=== PATIENT | female | born 1990 | race Caucasian/White ===

== ENCOUNTER 2016-04-21 01:41 | Emergency (ER) | payer SELFPAY ==
[2016-04-21] MEDS ORDERED: AMOXicillin 250 MG CAP ONE (02:30)
[2016-04-21] MEDS ORDERED: methylPREDNISolone Sod Succ/PF 125 MG/2 ML VIAL ONE (02:31)
--- NOTE | 2016-04-21 03:08 | PICIS ---
[facility] EMERGENCY RECORD TRIAGE (TueApr 21, 2016 01:53 MVIL) TRIAGE NOTES: SOB X 2 WEEKS. (TueApr 21, 2016 01:53 MVIL) PATIENT: NAME: Pura Mayorga, AGE: 25, GENDER: female, : Tue1990, TIME OF GREET: TueApr 21, 2016 01:42, PREFERRED LANGUAGE: Kyrgyz, ETHNICITY: Not or , FALL RISK: NO, ECODE BILLING MAP: [facility], SSN: [id number], Zip Code: [address], KG WEIGHT: 113.40, HEIGHT/LENGTH: 170.18cm, BMI: 39.15, , , PERSON ID: [id number], PAYMENT: [employer] Self Pay, PCP: [facility]. (TueApr 21, 2016 01:53 MVIL) PHONE: . (02:02) COMPLAINT: SOB. (TueApr 21, 2016 01:53 MVIL) ADMISSION: URGENCY: 3 Urgent, ADMISSION SOURCE: Home, TRANSPORT: CAR, BED: ER -01. (TueApr 21, 2016 01:53 MVIL) ASSESSMENT: Assessment: C/O SOB X 2 DAYS, Symptoms began 04/19/2016 02:03, Symptoms began 2 days ago. (02:05 MVIL) PAIN: No complaint of pain. (02:05 MVIL) SIRS SCORING: Heart Rate 55-109 (0). (02:05 MVIL) TRIAGE SCREENING: Patient denies suicidal ideation, Patient denies presence of domestic violence. (02:09 MVIL) TREATMENTS IN PROGRESS: Patient on oxygen, Patient on cardiac rehabilitation specialist, Rhythm: NSR. (02:10 MVIL) PROVIDERS: TRIAGE NURSE: Jo Solorzano RN. (TueApr 21, 2016 01:53 MVIL) VITAL SIGNS: BP 126/72, Pulse 95, Resp 14, Temp 97.8, (Oral), Pain 2, Time 04/21/2016 01:50. (01:50 MVIL) PREVIOUS VISIT ALLERGIES: erythromycin (bulk). (TueApr 21, 2016 01:53 MVIL) erythromycin (bulk). (02:05 MVIL) KNOWN ALLERGIES erythromycin (bulk): Reaction: Rash, Severity: Mild, Source: Patient CURRENT MEDICATIONS No recorded medications VITAL SIGNS (01:50 MVIL) VITAL SIGNS: BP: 126/72, Pulse: 95, Resp: 14, Temp: 97.8 (Oral), Pain: 2, Time: 04/21/2016 01:50. NURSING PROCEDURE: POP SINGER (01:56 SDIS) POP SINGER: Patient placed on cardiac rehabilitation specialist, Patient placed on non-invasive blood pressure monitor, Patient placed on continuous pulse oximetry. NURSING PROCEDURE: DISCHARGE NOTE (02:57 MVIL) DISCHARGE: Patient discharged to home, ambulating without assistance, driving self, unaccompanied, Summary of Care printed/ &a-1R&a+25V*p+0X*k6075G*c202B*c15G*c2P*p-0X&a-25V&a+1R Name: Pura Mayorga : 1990 F25 MedRec: [id number] AcctNum: [id number] Prepared: TueApr 21, 2016 03:07 by Interface Page 1 of 9 pMD [facility] EMERGENCY RECORD provided, Patient requested and was provided an electronic copy of Discharge Instructions, Transition record given to patient, Discharge instructions given to patient, Prescriptions given and instructions on side effects given, Name of prescription(s) given: PREDNISONE, PROMETHAZINE, AND AMOXICILLIN, Medication reconciliation form given, Above person(s) verbalized understanding of discharge instructions and follow-up care. BELONGINGS: Belongings and valuables with patient at time of discharge include:. NURSING PROCEDURE: EKG CHART (01:53 SDIS) PATIENT IDENTIFIER: Patient actively involved in identification process, Patient's identity verified by patient stating name, Patient's identity verified by patient stating date, Patient's identity verified by hospital ID bracelet. EKG: EKG indicated for complaint of chest pain, 12 lead EKG performed on the left chest, done by MARVIN CHAVEZ, first EKG, Notes: ACTUAL TIME 0147. FOLLOW-UP: After procedure, EKG for interpretation given to Dr. LUI. NURSING PROCEDURE: IV (02:41 MVIL) PATIENT IDENITIFIER: Patient actively involved in identification process, Patient's identity verified by patient stating name, Patient's identity verified by hospital ID bracelet. IV SITE 1: IV therapy indicated for hydration, IV therapy indicated for medication administration, IV established, to the right hand, using a 20 gauge catheter, in one attempt, Saline lock established, Flushed with normal saline (mls): 10MLS, Labs drawn at time of placement, labeled in the presence of the patient and sent to lab. FOLLOW-UP SITE 1: After procedure, 2x3 ensure dressing applied, After procedure, IV line connections checked and properly labeled, After procedure, no drainage at IV site, After procedure, no swelling at IV site, After procedure, no redness at IV site. SAFETY: Side rails up, Cart/Stretcher in lowest position, Family at bedside, Call light within reach, Hospital ID band on. ORDER DETAILS Order Name: ERRT * Young Jerome Fernandez Initial Trmt, Status: Active, Time: 01:56 04/21/2016, User: GAIL, - Ordered for: DO Lui Joseph, - Entered by: DO Lui Joseph - TueApr 21, 2016 01:56, - Quantity: 1, Order Name: Influenza A&B Ag Screen, Status: Active, Time: 01:56 04/21/2016, User: GAIL, - Ordered for: DO Lui Joseph, - Entered by: DO Lui Joseph - TueApr 21, 2016 01:56, - Quantity: 1, &a-1R&a+25V*p+0X*r2136L*c202B*c15G*c2P*p-0X&a-25V&a+1R Name: Pura Mayorga : 1990 F25 MedRec: [id number] AcctNum: [id number] Prepared: TueApr 21, 2016 03:07 by Interface Page 2 of 9 D [facility] EMERGENCY RECORD Order Name: XR Chest Pa & Lat STANDARD, Status: Active, Time: 01:56 04/21/2016, User: GAIL, - Ordered for: DO Lui Joseph, - Entered by: DO Lui Joseph - TueApr 21, 2016 01:56, - Quantity: 1. MEDICATION ADMINISTRATION SUMMARY Drug Name: Solu-MEDROL injection, Dose Ordered: 125 mg, Route: IV Push, Status: Given, Time: 02:42 04/21/2016, Drug Name: Amoxil, Dose Ordered: 1000 mg, Route: Oral, Status: Given, Time: 02:42 04/21/2016, Drug Name: DuoNeb, Dose Ordered: 3 mL, Route: Nebulize, Status: Given, Time: 02:01 04/21/2016, Detailed record available in Medication Service section. MEDICATION SERVICE Amoxil: Order: Amoxil (amoxicillin trihydrate) - Dose: 1000 mg : Oral Schedule: Now Ordered by: Hi Lui DO Entered by: Hi Lui DO TueApr 21, 2016 02:28 Documented as given by: Jo Solorzano RN TueApr 21, 2016 02:42 Patient, Medication, Dose, Route and Time verified prior to administration. Amount given: 1000MG, Correct patient, time, route, dose and medication confirmed prior to administration, Patient advised of actions and side-effects prior to administration, Allergies confirmed and medications reviewed prior to administration, Patient in position of comfort, Side rails up, Cart in lowest position. DuoNeb: Order: DuoNeb (ipratropium bromide/albuterol sulfate) - Dose: 3 mL : Nebulize Schedule: Now Ordered by: Hi Lui DO Entered by: Hi Lui DO TueApr 21, 2016 01:57 Documented as given by: Maria G Angel RN TueApr 21, 2016 02:01 Patient, Medication, Dose, Route and Time verified prior to administration. With oxygen, Correct patient, time, route, dose and medication confirmed prior to administration, Patient advised of actions and side-effects prior to administration, Allergies confirmed and medications reviewed prior to administration. Solu-MEDROL injection: Order: Solu-MEDROL injection (methylprednisolone sod succ) - Dose: 125 mg : IV Push Ordered by: Hi Lui DO Entered by: Hi Lui DO TueApr 21, 2016 02:28 Documented as given by: Jo Solorzano RN TueApr 21, 2016 02:42 Patient, Medication, Dose, Route and Time verified prior to &a-1R&a+25V*p+0X*j1759H*c202B*c15G*c2P*p-0X&a-25V&a+1R Name: Pura Mayorga : 1990 F25 MedRec: [id number] AcctNum: [id number] Prepared: TueApr 21, 2016 03:07 by Interface Page 3 of 9 pMD [facility] EMERGENCY RECORD administration. Amount given: 125MG, IV SITE #1 IVP, initial medication, Catheter placement confirmed via flush prior to administration, IV site without signs or symptoms of infiltration during medication administration, No swelling during administration, No drainage during administration, IV flushed after administration, Correct patient, time, route, dose and medication confirmed prior to administration, Patient advised of actions and side-effects prior to administration, Allergies confirmed and medications reviewed prior to administration, Patient in position of comfort, Side rails up, Cart in lowest position. HPI COUGH (02:20 JPIP) CHIEF COMPLAINT: Patient presents for evaluation of cough, non-productive, Patient presents for evaluation of SOB and pleuretic chest pain. HISTORIAN: History provided by patient. LOCATION: Symptoms are localized, most severe to amres more on the left side of her chest. QUALITY: Symptoms described as tightness. SEVERITY: Current severity of pain rated as 2/10. TIME COURSE: Gradual onset of symptoms, 2, weeks ago, Symptoms are worsening, today, are constant. ASSOCIATED WITH: Associated with chest pain, Associated with chills, Associated with diaphoresis, Associated with dyspnea on exertion, Associated with fever, Measured maximum temperature 101 to 101.9 degrees, No associated stridor, Associated with upper respiratory infection, No associated wheezing. EXACERBATED BY: Patient's condition exacerbated by deep breaths, Patient's condition exacerbated by exercise, Patient's condition exacerbated by lying flat. RELIEVED BY: Patient's condition relieved by nothing. ROS (02:21 JPIP) CONSTITUTIONAL: Historian reports chills, reports fever, reports malaise. EYES: Historian denies eye pain, denies eye redness, denies eye discharge. ENT: Historian denies dysphagia, reports rhinorrhea, denies sore throat. CARDIOVASCULAR: Historian reports chest pain, pleuritic, Historian reports dyspnea on exertion. RESPIRATORY: Historian reports cough, reports shortness of breath, denies sputum, denies stridor, denies wheezing. GI: Historian denies nausea, denies vomiting. SKIN: Historian denies rash, denies skin changes, denies skin lesions. NEUROLOGIC: Historian denies lethargy, denies mental status &a-1R&a+25V*p+0X*w5397L*c202B*c15G*c2P*p-0X&a-25V&a+1R Name: Pura Mayorga : 1990 F25 MedRec: [id number] AcctNum: [id number] Prepared: TueApr 21, 2016 03:07 by Interface Page 4 of 9 pMD [facility] EMERGENCY RECORD changes, denies paresthesias. NOTES: All systems reviewed, negative except as described above. PAST MEDICAL HISTORY MEDICAL HISTORY: Flu vaccine not up to date, Tetanus immunization up to date, Pneumococcal vaccine not up to date, Past medical history includes gastrointestinal disease, gallstones, SINCE 08/04/14., Flu vaccine not up to date, Tetanus immunization up to date, Pneumococcal vaccine not up to date, Past medical history includes gastrointestinal disease, gallstones. 08-04-14. REVIEWED 04/21/16. (02:05 MVIL) FEMALE SURGICAL HISTORY: Surgical history of tonsillectomy, Surgical history of section, Notes: x2, Surgical history of tubal ligation. ADENOIDS.VERIFIED 08/31/15.REVIEWED 04/21/16. (02:05 MVIL) PSYCHIATRIC HISTORY: Psychiatric history includes, depression, Notes: Pt took herself off meds x2 (ambien and prozac). VERIFIED 08/31/15. (02:05 MVIL) SOCIAL HISTORY: Patient denies alcohol use, Patient denies drug use, Patient currently uses tobacco, smokes cigarettes, daily, Patient smokes 1/2 packs per day, Patient denies alcohol use, Patient denies drug use, Patient currently uses tobacco, smokes cigarettes, daily, Patient has smoked for 15 years, Patient smokes 1/2 packs per day. REVIEWED 04/21/16. (02:05 MVIL) NOTES: Nursing records reviewed, Medication list reviewed. (02:23 JPIP) PHYSICAL EXAM (02:22 JPIP) CONSTITUTIONAL: Vital Signs Reviewed, Patient afebrile, Pulse normal, Blood pressure normal, Respiratory rate normal, Normal pulse oximetry, Patient appears, uncomfortable, Patient alert and oriented to person, place and time, Nursing notes reviewed. HEAD: Head exam included findings of head atraumatic, normocephalic. EYES: Eye exam included findings of eyelids normal to inspection, Conjunctiva normal, Sclera normal, no periorbital ecchymosis, no periorbital edema, no periorbital erythema. ENT: Ear exam normal, external ear normal, tympanic membranes normal, no foreign body, no drainage, no bleeding, Pharynx exam normal, not injected, no swelling, symmetrical, Uvula exam normal, midline, no edema, Mouth exam normal, mucous membranes moist. NECK: Neck exam included findings of normal range of motion, Trachea midline, no cervical adenopathy, no tenderness. RESPIRATORY CHEST: Respiratory exam included findings of no respiratory distress, Breath sounds not clear, No wheezing, Rales present, No rhonchi, Breath sounds not absent, Breath sounds not diminished. CARDIOVASCULAR: Cardiovascular exam included findings of heart rate regular rate and rhythm, Heart sounds normal. UPPER EXTREMITY: Upper extremity exam included findings of &a-1R&a+25V*p+0X*x2349T*c202B*c15G*c2P*p-0X&a-25V&a+1R Name: Pura Mayorga : 1990 F25 MedRec: [id number] AcctNum: [id number] Prepared: TueApr 21, 2016 03:07 by Interface Page 5 of 9 pMD [facility] EMERGENCY RECORD inspection normal, Range of motion normal. NEURO: Mary Alice coma scale 15. SKIN: Skin exam included findings of skin warm, dry, and normal in color. PSYCHIATRIC: Psychiatric exam included findings of patient oriented to person place and time, Normal affect. LAB INTERPRETATION (02:37 JPIP) INTERPRETATION: Influenza negative. EVENTS TRANSFER: Triage to Emergency Emergency Room -. (TueApr 21, 2016 01:53 MVIL) Removed from Emergency Emergency Room -. (02:59 MVIL) RADIOLOGYINTERPRETATION (02:31 JPIP) CHEST: Chest films negative, no infiltrates, no pneumothorax, no hemothorax, no masses, no cardiomegaly, no congestive heart failure, no effusion, no free air. HEAD MVA REACTOR OPERATOR: Preliminary review of x-rays by, ED Physician. EKG INTERPRETATION (01:57 JPIP) 12 LEAD EKG INTERPRETATION: 12 lead EKG interpreted by Emergency Department Physician at time of study, 12 lead EKG shows normal sinus rhythm, Rate (beats per minute): 92, with no ectopics, Interpretation: normal EKG, Conduction normal, ST segments normal, T waves normal, [place] normal, Clinical impression: Normal EKG. O2SAT INTERPRETATION (02:20 JPIP) O2SAT: Continuous pulse oximetry, Oxygen saturation 98%, on room air, Oxygen saturation interpretation: Normal, No intervention required. DOCTOR NOTES RE-EVALUATION: Routine re-evaluation, after administration of bronchodilator nebulizer treatments, The patient's condition has improved. (02:25 JPIP) TEXT: Discussed findings and treatment plan with patient, questions answered. (02:30 JPIP) PROBLEM LIST No recorded problems DIAGNOSIS (02:31 JPIP) FINAL: PRIMARY: Acute bronchitis. DISPOSITION PATIENT: Disposition Type: Discharge, Disposition: *Discharge Home, Condition: Good. (02:31 JPIP) Patient left the department. (02:59 MVIL) &a-1R&a+25V*p+0X*c9517F*c202B*c15G*c2P*p-0X&a-25V&a+1R Name: Pura Mayorga : 1990 F25 MedRec: [id number] AcctNum: [id number] Prepared: TueApr 21, 2016 03:07 by Interface Page 6 of 9 pMD [facility] EMERGENCY RECORD INSTRUCTION (02:29 JPIP) DISCHARGE: BRONCHITIS, ABX TX (ADULT). SPECIAL: Finish all your antibiotics Follow up with Primary Care Physician within 72 hours Return to the Emergency Department for increased symptoms problems or concerns Take acetaminophen or ibuprofen for pain. PRESCRIPTION Amoxil: CAPSULE (HARD, SOFT, ETC.) : 500 mg : ORAL : Quantity: 1 Unit: mg Route: ORAL Schedule: 3 times a day (after meals) Dispense: 30 May substitute. Refills: No Refills . (02:28 JPIP) NOTES: No refills. (02:28 JPIP) predniSONE oral: TABLET : 20 mg : ORAL : Quantity: 1 Unit: tab(s) Route: ORAL Schedule: once a day Dispense: 4 May substitute. Refills: No Refills . (02:28 JPIP) NOTES: Take with food No refills. (02:28 JPIP) promethazine-DM: SYRUP : : ORAL : Quantity: 5 Unit: mL Route: ORAL Schedule: every 8 hours PRN Dispense: 120 ml May substitute. Refills: No Refills . (02:28 JPIP) NOTES: for cough No refills. (02:28 JPIP) Proventil HFA: HFA AEROSOL WITH ADAPTER (GM) : 90 mcg : INHALATION : Quantity: 2 Unit: puff(s) Route: INHALATION Schedule: every 8 hours PRN Dispense: 1 May substitute. Refills: No Refills . (02:30 JPIP) NOTES: Please instruct in proper use. May substitute with an inhaler of less cost or covered by insurance. No refills. (02:30 JPIP) IMAGING *DISCHARGE INSTRUCTIONS RECEIPT: Image captured from scanner. (02:48 MVIL) *SUPPLY CHARGE SHEET: Image captured from scanner. (02:49 MVIL) RESULTS (02:25 JPIP) MICROBIOLOGY: Influenza A&B Ag Screen: [id number] Collection DT: TueApr 21, 2016 02:07, See comment below , @ ER ROOM#: ER-01 Source: Nasal swab Spec Desc: , Influenza A Antigen: NEGATIVE for the , presence of , INFLUENZA A Antigen , Influenza B Antigen: NEGATIVE for the , presence of , INFLUENZA B Antigen , The rapid Flu A&B test can distinguish between &a-1R&a+25V*p+0X*x0359L*c202B*c15G*c2P*p-0X&a-25V&a+1R Name: Pura Mayorga : 1990 F25 MedRec: [id number] AcctNum: [id number] Prepared: TueApr 21, 2016 03:07 by Interface Page 7 of 9 pMD [facility] EMERGENCY RECORD influenza A , Influenza A&B Ag Screen See comment below , and B viruses, but it does not differentiate influenza , Influenza A&B Ag Screen See comment below , subtypes. , Influenza A&B Ag Screen See comment below , Influenza A&B Ag Screen See comment below , Influenza A&B Ag Screen See comment below , Influenza A&B Ag Screen See comment below , characteristics of this device with human specimens infected , Influenza A&B Ag Screen See comment below , with the 2008 H1N1 influenza virus have not been , Influenza A&B Ag Screen See comment below , established. For example: this test cannot distinguish , Influenza A&B Ag Screen See comment below , influenza infections caused by novel H1N1 influenza A , Influenza A&B Ag Screen See comment below , viruses versus seasonal influenza A viruses. , Influenza A&B Ag Screen See comment below , , Influenza A&B Ag Screen See comment below , A negative result does not exclude influenza virus , Influenza A&B Ag Screen See comment below , infection; therefore, if more conclusive testing is desired, , Influenza A&B Ag Screen See comment below , follow up confirmatory testing is warranted., Influenza A&B Ag Screen See comment below . Influenza A&B Ag Screen: [id number] Collection DT: TueApr 21, 2016 02:07, See comment below , @ ER ROOM#: ER-01 Source: Nasal swab Spec Desc: , Influenza A Antigen: NEGATIVE for the , presence of , INFLUENZA A Antigen , Influenza B Antigen: NEGATIVE for the , presence of , INFLUENZA B Antigen , The rapid Flu A&B test can distinguish between influenza A , Influenza A&B Ag Screen See comment below , and B viruses, but it does not differentiate influenza , Influenza A&B Ag Screen See comment below , subtypes. , Influenza A&B Ag Screen See comment below , Influenza A&B Ag Screen See comment below , Influenza A&B Ag Screen See comment below , Influenza A&B Ag Screen See comment below , characteristics of this device with human specimens infected , Influenza A&B Ag Screen See comment below , with the 2008 H1N1 influenza virus have not been , Influenza A&B Ag Screen See comment below , established. For example: this test cannot distinguish , Influenza A&B Ag Screen See comment below , influenza infections &a-1R&a+25V*p+0X*g7412W*c202B*c15G*c2P*p-0X&a-25V&a+1R Name: Pura Mayorga : 1990 5 MedRec: [id number] AcctNum: [id number] Prepared: TueApr 21, 2016 03:07 by Interface Page 8 of 9 pMD [facility] EMERGENCY RECORD caused by novel H1N1 influenza A , Influenza A&B Ag Screen See comment below , viruses versus seasonal influenza A viruses. , Influenza A&B Ag Screen See comment below , , Influenza A&B Ag Screen See comment below , A negative result does not exclude influenza virus , Influenza A&B Ag Screen See comment below , infection; therefore, if more conclusive testing is desired, , Influenza A&B Ag Screen See comment below , follow up confirmatory testing is warranted., Influenza A&B Ag Screen See comment below . [place]: GAIL=DO Lui Joseph MVIL=MARVIN Solorzano Mariella SDIS=MARVIN Angel, Maria G &a-1R&a+25V*p+0X*u5908Y*c202B*c15G*c2P*p-0X&a-25V&a+1R Name: Pura Mayorga : 1990 5 MedRec: [id number] AcctNum: [id number] Prepared: TueApr 21, 2016 03:07 by Interface Page 9 of 9 pMD MTDD
--- NOTE | 2016-04-21 03:09 | ERRECORD ---
[facility] EMERGENCY RECORD HPI COUGH (02:20 JPIP) CHIEF COMPLAINT: Patient presents for evaluation of cough, non-productive, Patient presents for evaluation of SOB and pleuretic chest pain. HISTORIAN: History provided by patient. LOCATION: Symptoms are localized, most severe to mares more on the left side of her chest. QUALITY: Symptoms described as tightness. SEVERITY: Current severity of pain rated as 2/10. TIME COURSE: Gradual onset of symptoms, 2, weeks ago, Symptoms are worsening, today, are constant. ASSOCIATED WITH: Associated with chest pain, Associated with chills, Associated with diaphoresis, Associated with dyspnea on exertion, Associated with fever, Measured maximum temperature 101 to 101.9 degrees, No associated stridor, Associated with upper respiratory infection, No associated wheezing. EXACERBATED BY: Patient's condition exacerbated by deep breaths, Patient's condition exacerbated by exercise, Patient's condition exacerbated by lying flat. RELIEVED BY: Patient's condition relieved by nothing. ROS (02:21 JPIP) CONSTITUTIONAL: Historian reports chills, reports fever, reports malaise. EYES: Historian denies eye pain, denies eye redness, denies eye discharge. ENT: Historian denies dysphagia, reports rhinorrhea, denies sore throat. CARDIOVASCULAR: Historian reports chest pain, pleuritic, Historian reports dyspnea on exertion. RESPIRATORY: Historian reports cough, reports shortness of breath, denies sputum, denies stridor, denies wheezing. GI: Historian denies nausea, denies vomiting. SKIN: Historian denies rash, denies skin changes, denies skin lesions. NEUROLOGIC: Historian denies lethargy, denies mental status changes, denies paresthesias. NOTES: All systems reviewed, negative except as described above. PAST MEDICAL HISTORY MEDICAL HISTORY: Flu vaccine not up to date, Tetanus immunization up to date, Pneumococcal vaccine not up to date, Past medical history includes gastrointestinal disease, gallstones, SINCE 08/04/14., Flu vaccine not up to date, Tetanus immunization up to date, Pneumococcal vaccine not up to date, Past medical history includes gastrointestinal disease, gallstones. 08-04-14. REVIEWED 04/21/16. (02:05 MVIL) FEMALE SURGICAL HISTORY: Surgical history of tonsillectomy, &a-1R&a+25V*p+0X*z2855A*c202B*c15G*c2P*p-0X&a-25V&a+1R Name: Pura Mayorga : 1990 F25 MedRec: [id number] AcctNum: [id number] Prepared: TueApr 21, 2016 03:07 by Interface Page 1 of 4 pMD [facility] EMERGENCY RECORD Surgical history of section, Notes: x2, Surgical history of tubal ligation. ADENOIDS.VERIFIED 08/31/15.REVIEWED 04/21/16. (02:05 MVIL) PSYCHIATRIC HISTORY: Psychiatric history includes, depression, Notes: Pt took herself off meds x2 (ambien and prozac). VERIFIED 08/31/15. (02:05 MVIL) SOCIAL HISTORY: Patient denies alcohol use, Patient denies drug use, Patient currently uses tobacco, smokes cigarettes, daily, Patient smokes 1/2 packs per day, Patient denies alcohol use, Patient denies drug use, Patient currently uses tobacco, smokes cigarettes, daily, Patient has smoked for 15 years, Patient smokes 1/2 packs per day. REVIEWED 04/21/16. (02:05 MVIL) NOTES: Nursing records reviewed, Medication list reviewed. (02:23 JPIP) KNOWN ALLERGIES erythromycin (bulk): Reaction: Rash, Severity: Mild, Source: Patient CURRENT MEDICATIONS No recorded medications VITAL SIGNS (01:50 MVIL) VITAL SIGNS: BP: 126/72, Pulse: 95, Resp: 14, Temp: 97.8 (Oral), Pain: 2, Time: 04/21/2016 01:50. PHYSICAL EXAM (02:22 JPIP) CONSTITUTIONAL: Vital Signs Reviewed, Patient afebrile, Pulse normal, Blood pressure normal, Respiratory rate normal, Normal pulse oximetry, Patient appears, uncomfortable, Patient alert and oriented to person, place and time, Nursing notes reviewed. HEAD: Head exam included findings of head atraumatic, normocephalic. EYES: Eye exam included findings of eyelids normal to inspection, Conjunctiva normal, Sclera normal, no periorbital ecchymosis, no periorbital edema, no periorbital erythema. ENT: Ear exam normal, external ear normal, tympanic membranes normal, no foreign body, no drainage, no bleeding, Pharynx exam normal, not injected, no swelling, symmetrical, Uvula exam normal, midline, no edema, Mouth exam normal, mucous membranes moist. NECK: Neck exam included findings of normal range of motion, Trachea midline, no cervical adenopathy, no tenderness. RESPIRATORY CHEST: Respiratory exam included findings of no respiratory distress, Breath sounds not clear, No wheezing, Rales present, No rhonchi, Breath sounds not absent, Breath sounds not diminished. CARDIOVASCULAR: Cardiovascular exam included findings of heart rate regular rate and rhythm, Heart sounds normal. UPPER EXTREMITY: Upper extremity exam included findings of inspection normal, Range of motion normal. &a-1R&a+25V*p+0X*v0947X*c202B*c15G*c2P*p-0X&a-25V&a+1R Name: Pura Mayorga : 1990 F25 MedRec: [id number] AcctNum: [id number] Prepared: TueApr 21, 2016 03:07 by Interface Page 2 of 4 D [facility] EMERGENCY RECORD NEURO: [place] coma scale 15. SKIN: Skin exam included findings of skin warm, dry, and normal in color. PSYCHIATRIC: Psychiatric exam included findings of patient oriented to person place and time, Normal affect. EKG INTERPRETATION (01:57 JPIP) 12 LEAD EKG INTERPRETATION: 12 lead EKG interpreted by Emergency Department Physician at time of study, 12 lead EKG shows normal sinus rhythm, Rate (beats per minute): 92, with no ectopics, Interpretation: normal EKG, Conduction normal, ST segments normal, T waves normal, Blunt normal, Clinical impression: Normal EKG. RADIOLOGYINTERPRETATION (02:31 JPIP) CHEST: Chest films negative, no infiltrates, no pneumothorax, no hemothorax, no masses, no cardiomegaly, no congestive heart failure, no effusion, no free air. ARCHITECT INTERNSHIP: Preliminary review of x-rays by, ED Physician. MEDICATION ADMINISTRATION SUMMARY Drug Name: Solu-MEDROL injection, Dose Ordered: 125 mg, Route: IV Push, Status: Given, Time: :04/21/2016, Drug Name: Amoxil, Dose Ordered: 1000 mg, Route: Oral, Status: Given, Time: 04/21/2016, Drug Name: DuoNeb, Dose Ordered: 3 mL, Route: Nebulize, Status: Given, Time: 02:01 04/21/2016, Detailed record available in Medication Service section. DOCTOR NOTES RE-EVALUATION: Routine re-evaluation, after administration of bronchodilator nebulizer treatments, The patient's condition has improved. (02:25 JPIP) TEXT: Discussed findings and treatment plan with patient, questions answered. (02:30 JPIP) PROBLEM LIST No recorded problems DIAGNOSIS (02:31 JPIP) FINAL: PRIMARY: Acute bronchitis. PRESCRIPTION Amoxil: CAPSULE (HARD, SOFT, ETC.) : 500 mg : ORAL : Quantity: 1 Unit: mg Route: ORAL Schedule: 3 times a day (after meals) Dispense: 30 May substitute. Refills: No Refills . (02:28 JPIP) NOTES: No refills. (02:28 JPIP) predniSONE oral: TABLET : 20 mg : ORAL : Quantity: 1 Unit: tab(s) Route: ORAL Schedule: once a day Dispense: 4 &a-1R&a+25V*p+0X*v6970Z*c202B*c15G*c2P*p-0X&a-25V&a+1R Name: Pura Mayorga : 1990 F25 MedRec: [id number] AcctNum: [id number] Prepared: TueApr 21, 2016 03:07 by Interface Page 3 of 4 pMD [facility] EMERGENCY RECORD May substitute. Refills: No Refills . (02:28 JPIP) NOTES: Take with food No refills. (02:28 JPIP) promethazine-DM: SYRUP : : ORAL : Quantity: 5 Unit: mL Route: ORAL Schedule: every 8 hours PRN Dispense: 120 ml May substitute. Refills: No Refills . (02:28 JPIP) NOTES: for cough No refills. (02:28 JPIP) Proventil HFA: HFA AEROSOL WITH ADAPTER (GM) : 90 mcg : INHALATION : Quantity: 2 Unit: puff(s) Route: INHALATION Schedule: every 8 hours PRN Dispense: 1 May substitute. Refills: No Refills . (02:30 JPIP) NOTES: Please instruct in proper use. May substitute with an inhaler of less cost or covered by insurance. No refills. (02:30 JPIP) DISPOSITION PATIENT: Disposition Type: Discharge, Disposition: *Discharge Home, Condition: Good. (02:31 JPIP) Patient left the department. (02:59 MVIL) Baldwin: GAIL=DO Lui Joseph MVIL=MARVIN Solorzano, Jo &a-1R&a+25V*p+0X*a5924H*c202B*c15G*c2P*p-0X&a-25V&a+1R Name: Pura Mayorga : 1990 F25 MedRec: [id number] AcctNum: [id number] Prepared: TueApr 21, 2016 03:07 by Interface Page 4 of 4 pMD MTDD
--- NOTE | 2016-04-21 07:08 | RAD ---
CHEST 2 VIEWS: DATE: 04/21/16. FINDINGS: Comparison is made with a 12/29/14 study. The etienne is normal in size and the lungs are clear. No i nfiltrate or effusion was seen today. There is no vascular congestion. The mediastinum was unremar kable in appearance. The trachea is midline. IMPRESSION: No acute thoracic findings. POS: HOME
== END 2016-04-21 02:45 | disposition home or self-care (01) ==
LOC: BURERS 01:41
DX: J20.9 Acute bronchitis, unspecified (principal); F32.9 Major depressive disorder, single episode, unspecified; F17.210 Nicotine dependence, cigarettes, uncomplicated
CPT/HCPCS: 71020; 94640; 96374; J2930; J7620

== ENCOUNTER 2016-10-05 22:28 | Emergency (ER) | payer SELFPAY ==
--- NOTE | 2016-10-06 11:29 | RAD ---
RIGHT FOOT THREE VIEWS: Date: 10-05-16 FINDINGS: No fracture or periosteal reaction was appreciated. The tarsal relations seem normal. A small calcan eal spur was noted. IMPRESSION: No acute finding. POS: HOME
== END 2016-10-05 23:22 | disposition home or self-care (01) ==
LOC: BURERS 22:28
DX: S93.601A Unspecified sprain of right foot, initial encounter (principal); F32.9 Major depressive disorder, single episode, unspecified; F17.210 Nicotine dependence, cigarettes, uncomplicated; X50.1XXA Overexertion from prolonged static or awkward postures, initial encounter

== ENCOUNTER 2016-12-29 17:57 | Emergency (ER) | payer SELFPAY ==
[2016-12-29] MEDS ORDERED: Ibuprofen 800 MG TAB ONE (18:12)
[2016-12-29] MEDS ORDERED: HYDROcodone/Acetaminophen 5/325 mg Tablet ONE (18:12)
[2016-12-29 18:23] LABS: #Basophils 0.1 thou/uL (0.0-0.2); #Eosinphils 0.1 thou/uL (0.0-0.7); #Lymphocytes 3.2 thou/uL (1.20-3.40); #Monocytes 0.5 thou/uL (0.11-0.59); #Neutrophils 5.4 thou/uL (1.40-6.50); %Basophils 0.7 % (0.0-1.0); %Eosinophils 1.3 % (0.0-10.0); %Lymphocytes 34.7 % (21.0-51.0); %Monocytes 5.6 % (0.0-10.0); %Neutrophils 57.7 % (42.0-75.0); Hemoglobin 14.5 g/dL (12.0-16.0); Mean Corpuscular HGB CONC 32.7 g/dL (32.0-36.0); Mean Corpuscular Hemoglobin 32.3 pg (27.0-31.0); Mean Corpuscular Volume 98.8 fl (81.0-99.0); Mean Platelet Volume 6.8 fL (7.4-10.4); Platelet Count 290 thou/uL (130-400); RBC Distribution Width 11.4 % (11.5-14.5); Red Blood Cell (RBC) Count 4.48 mill/uL (4.20-5.40); White Blood Cell (WBC) Count 9.3 thou/uL (4.8-10.8)
[2016-12-29 18:41] LABS: ALT (SGPT) 18 U/L (8-55); AST (SGOT) 11 U/L (5-34); Albumin 3.7 g/dL (3.5-5.0); Alkaline Phosphatase 75 U/L (40-150); Anion Gap 12 mmol/L (10-20); BUN (Urea Nitrogen) 11 mg/dL (7.0-18.7); Bilirubin, Total 0.3 mg/dL (0.2-1.2); Calc. Creatinine Clearance 0 mL/min (70-130); Calcium 8.8 mg/dL (7.8-10.44); Carbon Dioxide 23 mmol/L (22-29); Chloride 110 mmol/L (98-107); Estimated GFR-MDRD 88; Globulin 2.5 g/dL (2.4-3.5); Glucose 111 mg/dL (70-105); Lipase 28 U/L (8-78); Potassium 3.9 mmol/L (3.5-5.1); Protein, Total 6.2 g/dL (6.0-8.3); Sodium 141 mmol/L (136-145)
[2016-12-29 18:42] LABS: CKMB 0.4 ng/mL (0-6.6); Troponin I Less than 0.010 ng/mL (< 0.028)
--- NOTE | 2016-12-29 23:16 | RAD ---
PORTABLE CHEST 12/29/16 An AP portable film at is compared with a 09/18 study. The heart is normal in size and the lungs are clear. No infiltrate or effusion was seen. IMPRESSION: No acute findings. POS: HOME
== END 2016-12-29 19:04 | disposition home or self-care (01) ==
LOC: BURERS 17:57
DX: M94.0 Chondrocostal junction syndrome [Tietze] (principal); F41.9 Anxiety disorder, unspecified; F32.9 Major depressive disorder, single episode, unspecified; F17.210 Nicotine dependence, cigarettes, uncomplicated
CPT/HCPCS: 71010; 80053; 82553; 83690; 84484; 85025; 85379; 93005; 94760

== ENCOUNTER 2017-04-20 19:06 | Emergency (ER) | payer SELFPAY ==
[2017-04-20] MEDS ORDERED: HYDROcodone/Acetaminophen 10/325 mg Tablet ONE (20:21)
[2017-04-20] MEDS ORDERED: Oseltamivir 75 MG CAP ONE (20:22)
[2017-04-20] MEDS ORDERED: Ibuprofen 800 MG TAB ONE (20:22)
--- NOTE | 2017-04-20 21:08 | RAD ---
CHEST TWO VIEWS: 04/20/17 Comparison is made with the 04/21/16 study. The heart is normal in size and the lungs are clear. There are no current findings of pneumonia. Ther e are no effusions. There is no vascular congestion or edema. The trachea is midline. IMPRESSION: No acute thoracic findings. POS: HOME
== END 2017-04-20 20:23 | disposition home or self-care (01) ==
LOC: BURERS 19:06
DX: J11.1 Influenza due to unidentified influenza virus with other respiratory manifestations (principal); R09.1 Pleurisy; F17.210 Nicotine dependence, cigarettes, uncomplicated; F41.9 Anxiety disorder, unspecified; F32.9 Major depressive disorder, single episode, unspecified
CPT/HCPCS: 71046

== ENCOUNTER 2017-07-14 20:18 | Emergency (ER) | payer SELFPAY | END 2017-07-14 21:05 | disposition home or self-care (01) | LOC: BURERS 20:18 | DX: J06.9 Acute upper respiratory infection, unspecified (principal); F41.9 Anxiety disorder, unspecified; F32.9 Major depressive disorder, single episode, unspecified; F17.210 Nicotine dependence, cigarettes, uncomplicated | CPT/HCPCS: 99283 ==

== ENCOUNTER 2017-09-18 03:10 | Emergency (ER) | payer SELFPAY ==
[2017-09-18] MEDS ORDERED: Famotidine In NaCl 20 mg/50 ml Premix Bag ONE (03:35)
[2017-09-18] MEDS ORDERED: Ondansetron HCl/PF 4 MG/2 ML Vial ONE (03:35)
[2017-09-18 03:53] LABS: #Basophils 0.1 thou/uL (0.0-0.2); #Lymphocytes 1.9 thou/uL (1.20-3.40); #Monocytes 0.4 thou/uL (0.11-0.59); #Neutrophils 9.3 thou/uL (1.40-6.50); %Basophils 0.5 % (0.0-1.0); %Eosinophils 0.1 % (0.0-10.0); %Lymphocytes 15.9 % (21.0-51.0); %Monocytes 3.8 % (0.0-10.0); %Neutrophils 79.7 % (42.0-75.0); Hemoglobin 14.4 g/dL (12.0-16.0); Mean Corpuscular HGB CONC 36.3 g/dL (32.0-36.0); Mean Corpuscular Hemoglobin 31.8 pg (27.0-31.0); Mean Corpuscular Volume 87.6 fL (78.0-98.0); Mean Platelet Volume 6.1 fL (7.4-10.4); Platelet Count 288 thou/uL (130-400); RBC Distribution Width 11.2 % (11.5-14.5); Red Blood Cell (RBC) Count 4.51 mill/uL (4.20-5.40); White Blood Cell (WBC) Count 11.7 thou/uL (4.8-10.8)
[2017-09-18 04:07] LABS: ALT (SGPT) 13 U/L (8-55); AST (SGOT) 11 U/L (5-34); Albumin 3.9 g/dL (3.5-5.0); Alcohol 149 mg/dL (Less than 10); Alkaline Phosphatase 66 U/L (40-150); Anion Gap 16 mmol/L (10-20); BUN (Urea Nitrogen) 11 mg/dL (7.0-18.7); Bilirubin, Total 0.2 mg/dL (0.2-1.2); Calc. Creatinine Clearance 0 mL/min (70-130); Calcium 8.5 mg/dL (7.8-10.44); Carbon Dioxide 20 mmol/L (22-29); Chloride 108 mmol/L (98-107); Estimated GFR-MDRD Greater than 90; Globulin 2.6 g/dL (2.4-3.5); Glucose 108 mg/dL (70-105); Lipase 24 U/L (8-78); Potassium 4.1 mmol/L (3.5-5.1); Protein, Total 6.5 g/dL (6.0-8.3); Sodium 140 mmol/L (136-145)
== END 2017-09-18 04:20 | disposition home or self-care (01) ==
LOC: BURERS 03:10
DX: F10.129 Alcohol abuse with intoxication, unspecified (principal); F41.9 Anxiety disorder, unspecified; F32.9 Major depressive disorder, single episode, unspecified; F17.200 Nicotine dependence, unspecified, uncomplicated; Y90.6 Blood alcohol level of 120-199 mg/100 ml
CPT/HCPCS: 36415; 80053; 80307; 83690; 85025; 96365; 96375; J2405

== ENCOUNTER 2018-02-16 19:46 | Emergency (ER) | payer SELFPAY ==
[2018-02-16] MEDS ORDERED: AMOXicillin 250 MG CAP ONE (20:41)
== END 2018-02-16 20:44 | disposition home or self-care (01) ==
LOC: BURERS 19:46
DX: J02.9 Acute pharyngitis, unspecified (principal); J06.9 Acute upper respiratory infection, unspecified; F41.9 Anxiety disorder, unspecified; F32.9 Major depressive disorder, single episode, unspecified; F17.210 Nicotine dependence, cigarettes, uncomplicated
CPT/HCPCS: 87804; 99283

== ENCOUNTER 2018-03-28 19:11 | Emergency (ER) | payer SELFPAY | END 2018-03-28 19:45 | disposition home or self-care (01) | LOC: BURERS 19:11 | DX: S60.052A Contusion of left little finger without damage to nail, initial encounter (principal); F41.9 Anxiety disorder, unspecified; F32.9 Major depressive disorder, single episode, unspecified; F17.210 Nicotine dependence, cigarettes, uncomplicated; W23.0XXA Caught, crushed, jammed, or pinched between moving objects, initial encounter | CPT/HCPCS: 99283 ==

== ENCOUNTER 2018-05-16 18:33 | Emergency (ER) | payer SELFPAY ==
[2018-05-16] MEDS ORDERED: Acetaminophen 325 MG TAB ONE (18:55)
== END 2018-05-16 19:17 | disposition home or self-care (01) ==
LOC: BURERS 18:33
DX: B34.9 Viral infection, unspecified (principal); F41.9 Anxiety disorder, unspecified; F32.9 Major depressive disorder, single episode, unspecified; F17.210 Nicotine dependence, cigarettes, uncomplicated; Z79.899 Other long term (current) drug therapy
CPT/HCPCS: 87804; 99283

== ENCOUNTER 2018-10-16 23:02 | Emergency (ER) | payer BC, SELFPAY ==
[2018-10-16] MEDS ORDERED: Ondansetron PF 4 MG/2 ML Vial ONE (23:33)
[2018-10-16] MEDS ORDERED: Glycopyrrolate 0.4 MG/ 2 ML VIAL ONE (23:33)
[2018-10-16] MEDS ORDERED: Ketorolac Tromethamine 30 MG/ML VIAL ONE (23:33)
[2018-10-16 23:39] LABS: #Basophils 0.1 thou/uL (0.0-0.2); #Eosinphils 0.1 thou/uL (0.0-0.7); #Lymphocytes 2.8 thou/uL (1.20-3.40); #Monocytes 0.6 thou/uL (0.11-0.59); #Neutrophils 6.5 thou/uL (1.40-6.50); %Basophils 0.7 % (0.0-1.0); %Lymphocytes 27.5 % (21.0-51.0); %Monocytes 6.4 % (0.0-10.0); %Neutrophils 64.3 % (42.0-75.0); Hemoglobin 12.7 g/dL (12.0-16.0); Mean Corpuscular HGB CONC 32.8 g/dL (32.0-36.0); Mean Corpuscular Hemoglobin 29.1 pg (27.0-31.0); Mean Corpuscular Volume 88.6 fL (78.0-98.0); Mean Platelet Volume 6.8 fL (7.4-10.4); Platelet Count 307 thou/uL (130-400); RBC Distribution Width 12.8 % (11.5-14.5); Red Blood Cell (RBC) Count 4.38 mill/uL (4.20-5.40)
[2018-10-16] MEDS ORDERED: Fentanyl 100 MCG/2 ML VIAL ONE (23:42)
[2018-10-16 23:44] LABS: Bilirubin Negative (Negative); Blood, Urine Moderate (Negative); Clarity Clear (Clear); Glucose, Urine (Dipstick) Negative (Negative); Leukocyte Negative (Negative); Nitrite Negative (Negative); Protein, Urine (Dipstick) Negative (Neg-Trace)
[2018-10-16 23:52] LABS: ALT (SGPT) 17 U/L (8-55); AST (SGOT) 11 U/L (5-34); Albumin 3.9 g/dL (3.5-5.0); Alkaline Phosphatase 78 U/L (40-150); Anion Gap 15 mmol/L (10-20); BUN (Urea Nitrogen) 9 mg/dL (7.0-18.7); Bilirubin, Total 0.2 mg/dL (0.2-1.2); Calc. Creatinine Clearance 0 mL/min (70-130); Calcium 8.9 mg/dL (7.8-10.44); Carbon Dioxide 22 mmol/L (22-29); Chloride 110 mmol/L (98-107); Estimated GFR-MDRD 73; Globulin 2.7 g/dL (2.4-3.5); Glucose 111 mg/dL (70-105); Lipase 22 U/L (8-78); Potassium 3.6 mmol/L (3.5-5.1); Protein, Total 6.6 g/dL (6.0-8.3); Sodium 143 mmol/L (136-145)
[2018-10-16 23:56] LABS: RBC/HPF 0-3 HPF (0-3); Squamous Epithelial 0-3 HPF (0-3); WBC/HPF 0-3 HPF (0-3)
[2018-10-17] MEDS ORDERED: Ondansetron PF 4 MG/2 ML Vial ONE (01:27)
[2018-10-17] MEDS ORDERED: Ciprofloxacin 500 MG TAB ONE (01:43)
--- NOTE | 2018-10-17 07:21 | CT ---
PRELIMINARY REPORT/[facility]/EMERGENCY AFTER HOURS PROCEDURE: EXAM: CT Abdomen and Pelvis Without Contrast EXAM DATE/TIME: 10/17/2018 12:08 AM CLINICAL HISTORY: 27 years old, female; Abdominal pain; Right; Patient HX: RT flank pain that started 2 hours ago TECHNIQUE: Imaging protocol: Axial computed tomography images of the abdomen and pelvis without contrast. Ibarra l and sagittal reformatted images were created and reviewed. Radiation optimization: All CT scans at this facility use at least one of these dose optimization techniques: automated exposure control; mA and/or kV adjustment per patient size (includes targeted exams where dose is matched to clinical indication); or iterative reconstruction. COMPARISON: No relevant prior studies available. FINDINGS: Liver: No acute findings. No mass. Gallbladder and bile ducts: No calcified stones. No ductal dilation. Pancreas: No acute findings. No ductal dilation. Spleen: No acute findings. No splenomegaly. Adrenals: No acute findings. No mass. Kidneys and ureters: No obstructing stone. No hydronephrosis. Stomach and bowel: No obstruction. Appendix: No evidence of appendicitis. Intraperitoneal space: No free air. No significant fluid collection. Vasculature: No abdominal aortic aneurysm. Lymph nodes: No significant adenopathy. Bladder: The bladder is decompressed. No stones. Reproductive: No acute findings. Bones/joints: No acute fracture. Soft tissues: No acute findings. IMPRESSION: No acute findings. Thank you for allowing us to participate in the care of your patient. Dictated and Authenticated by: Gareth Marley MD 10/17/2018 1:34 AM Central Time ([place] & [place]) FINAL REPORT CT ABDOMEN AND PELVIS WITHOUT CONTRAST: Date: 10/17/[address] of the abdomen and pelvis was performed for evaluation of right flank pain. Axial slices we re acquired, followed by coronal reconstructions. FINDINGS: The lung bases are clear. There is no infiltrate or effusion visible. The liver, spleen, pancreas, ad renal glands, gallbladder, kidneys, and abdominal aorta all appeared normal within the limitations of a noncontrast scan. No sign of renal obstruction, renal calculi, or ureteral calculi. The bowel shows no distention or wall thickening. The appendix appears normal. There is no free air o r free fluid. CT of the pelvis shows no adnexal masses, fluid collections, or inflammatory changes. IMPRESSION: No significant abdominal or pelvic findings. Report in agreement with the preliminary reading by [place]. POS: HOME
== END 2018-10-17 01:45 | disposition home or self-care (01) ==
LOC: BURERS 23:02
DX: K52.9 Noninfective gastroenteritis and colitis, unspecified (principal); F41.9 Anxiety disorder, unspecified; F32.9 Major depressive disorder, single episode, unspecified; Z87.891 Personal history of nicotine dependence; Z79.899 Other long term (current) drug therapy
CPT/HCPCS: 74176; 80053; 81003; 81015; 83690; 85025; 96361; 96374; 96375; 96376; J1885; J2405; J3010

== ENCOUNTER 2018-12-06 20:51 | Emergency (ER) | payer BC ==
[2018-12-06] MEDS ORDERED: Bicillin CR 1.2 MILL UNITS/2 ML SYRINGE ONE (21:16)
== END 2018-12-06 21:35 | disposition home or self-care (01) ==
LOC: BURERS 20:51
DX: J02.9 Acute pharyngitis, unspecified (principal); F17.210 Nicotine dependence, cigarettes, uncomplicated; F41.9 Anxiety disorder, unspecified; F32.9 Major depressive disorder, single episode, unspecified; Z79.899 Other long term (current) drug therapy
CPT/HCPCS: 96372; 99282; J0558

== ENCOUNTER 2019-04-28 20:11 | Emergency (ER) | payer BC ==
[2019-04-28] MEDS ORDERED: Ondansetron ODT 4 MG TAB ONE (20:50)
== END 2019-04-28 21:01 | disposition home or self-care (01) ==
LOC: BURERS 20:11
DX: B34.9 Viral infection, unspecified (principal); R11.2 Nausea with vomiting, unspecified; F41.9 Anxiety disorder, unspecified; F32.9 Major depressive disorder, single episode, unspecified; F17.210 Nicotine dependence, cigarettes, uncomplicated
CPT/HCPCS: 87081; 87430; 99284; Q0162

== ENCOUNTER 2019-08-08 17:56 | Emergency (ER) | payer BC ==
[2019-08-08 19:02] LABS: Bilirubin Negative (Negative); Blood, Urine Negative (Negative); Clarity Clear (Clear); Glucose, Urine (Dipstick) Negative (Negative); Leukocyte Negative (Negative); Nitrite Negative (Negative); Protein, Urine (Dipstick) Negative (Neg-Trace); Urobilinogen 0.2 mg/dL (Less than 2)
[2019-08-08 19:03] LABS: Pregnancy Test - Urine (BHCG) Negative (Negative); Pregu Control Background? CLEAR/WHITE (CLR/WHITE); Pregu Control Bar Appear? YES (CONTROL BAR); Specific Gravity 1.024 (1.002-1.036)
[2019-08-08 19:04] LABS: #Basophils 0.1 thou/uL (0.0-0.2); #Eosinphils 0.1 thou/uL (0.0-0.7); #Lymphocytes 3.4 thou/uL (1.20-3.40); #Monocytes 0.6 thou/uL (0.11-0.59); #Neutrophils 7.8 thou/uL (1.40-6.50); %Basophils 0.8 % (0.0-1.0); %Eosinophils 0.7 % (0.0-10.0); %Lymphocytes 28.3 % (21.0-51.0); %Monocytes 4.7 % (0.0-10.0); %Neutrophils 65.4 % (42.0-75.0); Hemoglobin 13.7 g/dL (12.0-16.0); Mean Corpuscular HGB CONC 30.9 g/dL (32.0-36.0); Mean Corpuscular Volume 97.1 fL (78.0-98.0); Mean Platelet Volume 6.8 fL (7.4-10.4); Platelet Count 309 thou/uL (130-400); Red Blood Cell (RBC) Count 4.57 mill/uL (4.20-5.40)
[2019-08-08 19:12] LABS: ALT (SGPT) 19 U/L (8-55); AST (SGOT) 13 U/L (5-34); Albumin 3.9 g/dL (3.5-5.0); Alkaline Phosphatase 72 U/L (40-110); Anion Gap 15 mmol/L (10-20); BUN (Urea Nitrogen) 9 mg/dL (7.0-18.7); Bilirubin, Total 0.2 mg/dL (0.2-1.2); Calc. Creatinine Clearance 0 mL/min (70-130); Calcium 8.7 mg/dL (7.8-10.44); Carbon Dioxide 21 mmol/L (22-29); Chloride 110 mmol/L (98-107); Estimated GFR-MDRD 83; Globulin 2.6 g/dL (2.4-3.5); Glucose 99 mg/dL (70-105); Potassium 3.8 mmol/L (3.5-5.1); Protein, Total 6.5 g/dL (6.0-8.3); Sodium 142 mmol/L (136-145)
[2019-08-08] MEDS ORDERED: cefTRIAXone\\ROCEPHIN 500 MG VIAL ONE (19:40)
[2019-08-08] MEDS ORDERED: Doxycycline 100 MG CAP ONE (19:40)
[2019-08-08] MEDS ORDERED: Lidocaine 1% PF 5 ML VIAL ONE (19:41)
[2019-08-09 22:11] LABS: Chlamydia by PCR Not Detected (NotDetected); GC by PCR Not Detected (NotDetected)
== END 2019-08-08 19:58 | disposition home or self-care (01) ==
LOC: BURERS 17:56
DX: N73.9 Female pelvic inflammatory disease, unspecified (principal); F17.210 Nicotine dependence, cigarettes, uncomplicated
CPT/HCPCS: 36415; 80053; 81003; 81025; 85025; 87480; 87491; 87510; 87591; 87660; 96372; 99284; J0696; J2001

== ENCOUNTER 2020-11-04 10:24 | Emergency (ER) | payer BC ==
[2020-11-04 21:53] LABS: SARS-CoV-2 PCR by NAA Not Detected (NotDetected)
== END 2020-11-04 12:35 | disposition home or self-care (01) ==
LOC: BURERS 10:24
DX: R59.0 Localized enlarged lymph nodes (principal); R05 Cough; F17.210 Nicotine dependence, cigarettes, uncomplicated; Z20.822 Contact with and (suspected) exposure to COVID-19
CPT/HCPCS: 87081; 87430; 87804; 99283; U0003; U0005